=== PATIENT | female | born 1935 | race Caucasian/White ===

== ENCOUNTER 2020-11-08 17:24 | Inpatient (IN) ==
[2020-11-09 04:25] LABS: Basophils % 0.5 %; Eosinophils # 0.1 K/mcL (0.0-0.6); Eosinophils % 1.6 %; Hematocrit 32.6 % (35.3-44.9); Hemoglobin 9.9 g/dL (11.5-15.4); Immature Granulocytes % 0.2 % (0-4); Mean Corpuscular HGB Conc 30.4 g/dL (31.6-35.5); Mean Corpuscular Hemoglobin 31.2 pg (28.0-33.3); Mean Corpuscular Volume 102.8 fL (83.0-100.0); Mean Platelet Volume 10.7 fL (9.4-12.4); Monocytes # 0.7 K/mcL (0.0-1.3); Monocytes % 11.9 %; Neutrophils # 3.9 K/mcL (1.6-8.9); Platelet Count 154 K/mcL (140-400); Red Blood Count 3.17 M/mcL (3.82-4.97); Red Cell Distribution Width 15.5 % (11.5-14.5); Segmented Neutrophils % 68.8 %; White Blood Count 5.7 K/mcL (4.3-11.1)
[2020-11-09 05:19] LABS: Calcium 9.4 mg/dL (8.6-10.3); Potassium 3.7 mEq/L (3.5-5.1)
[2020-11-09] MEDS: Budesonide/Formoterol 160/4.5 1 PUFF INH IH SCH (10:26)
[2020-11-09] MEDS: Magnesium Oxide 400 MG TABLET PO SCH (10:30)
[2020-11-09] MEDS: Aspirin Enteric Coated 81 MG Tablet PO SCH (10:30)
[2020-11-09] MEDS: Nystatin POWDER 30 GM BOTTLE TP SCH ×3 (10:30→21:11)
[2020-11-09] MEDS: Metoprolol XL (24 HR) Succ 50 MG TAB.ER.24H PO SCH ×2 (10:30→21:10)
[2020-11-09] MEDS: FLUoxetine 20 MG CAPSULE PO SCH (10:32)
[2020-11-09] MEDS: Cefdinir 300 MG CAPSULE PO SCH ×2 (10:32→21:10)
[2020-11-09] MEDS: Furosemide 40 MG TABLET PO SCH (10:33)
[2020-11-09] MEDS: Isosorbide MONOnitrate (24 HR) 30 MG TAB.ER.24H PO SCH (10:33)
[2020-11-09] MEDS: POTASSIUM GLUCONATE 500 MG PO SCH (10:35)
[2020-11-09] MEDS: Multivit/Ca/Min/Fe/FA 1 TAB TABLET PO SCH (10:38)
[2020-11-09] MEDS: Loratadine 10 MG TABLET PO SCH (17:46)
[2020-11-10 04:07] LABS: Basophils % 0.6 %; Eosinophils # 0.1 K/mcL (0.0-0.6); Hematocrit 33.1 % (35.3-44.9); Hemoglobin 10.4 g/dL (11.5-15.4); Immature Granulocytes % 0.2 % (0-4); Lymphocytes # 1.1 K/mcL (0.6-4.6); Lymphocytes % 20.6 %; Mean Corpuscular HGB Conc 31.4 g/dL (31.6-35.5); Mean Corpuscular Hemoglobin 32.4 pg (28.0-33.3); Mean Corpuscular Volume 103.1 fL (83.0-100.0); Mean Platelet Volume 10.9 fL (9.4-12.4); Monocytes # 0.7 K/mcL (0.0-1.3); Monocytes % 12.1 %; Neutrophils # 3.5 K/mcL (1.6-8.9); Platelet Count 165 K/mcL (140-400); Red Blood Count 3.21 M/mcL (3.82-4.97); Red Cell Distribution Width 15.7 % (11.5-14.5); Segmented Neutrophils % 64.5 %; White Blood Count 5.4 K/mcL (4.3-11.1)
[2020-11-10 04:59] LABS: Calcium 9.4 mg/dL (8.6-10.3); Potassium 3.9 mEq/L (3.5-5.1)
[2020-11-10] MEDS: Budesonide/Formoterol 160/4.5 1 PUFF INH IH SCH (08:15)
[2020-11-10] MEDS: Furosemide 40 MG TABLET PO SCH (10:03)
[2020-11-10] MEDS: Metoprolol XL (24 HR) Succ 50 MG TAB.ER.24H PO SCH ×2 (10:03→21:53)
[2020-11-10] MEDS: Isosorbide MONOnitrate (24 HR) 30 MG TAB.ER.24H PO SCH (10:03)
[2020-11-10] MEDS: Magnesium Oxide 400 MG TABLET PO SCH (10:03)
[2020-11-10] MEDS: Nystatin POWDER 30 GM BOTTLE TP SCH ×3 (10:04→21:55)
[2020-11-10] MEDS: POTASSIUM GLUCONATE 500 MG PO SCH (10:04)
[2020-11-10] MEDS: Cefdinir 300 MG CAPSULE PO SCH ×2 (10:04→21:54)
[2020-11-10] MEDS: FLUoxetine 20 MG CAPSULE PO SCH (10:04)
[2020-11-10] MEDS: Aspirin Enteric Coated 81 MG Tablet PO SCH (10:04)
[2020-11-10] MEDS: Multivit/Ca/Min/Fe/FA 1 TAB TABLET PO SCH (10:04)
[2020-11-10] MEDS: Loratadine 10 MG TABLET PO SCH (19:18)
[2020-11-10] MEDS: Melatonin 3 MG TABLET PO PRN (21:54)
[2020-11-11] MEDS: FLUoxetine 20 MG CAPSULE PO SCH (09:04)
[2020-11-11] MEDS: Isosorbide MONOnitrate (24 HR) 30 MG TAB.ER.24H PO SCH (09:04)
[2020-11-11] MEDS: Magnesium Oxide 400 MG TABLET PO SCH (09:04)
[2020-11-11] MEDS: Cefdinir 300 MG CAPSULE PO SCH (09:04)
[2020-11-11] MEDS: Aspirin Enteric Coated 81 MG Tablet PO SCH (09:04)
[2020-11-11] MEDS: Metoprolol XL (24 HR) Succ 50 MG TAB.ER.24H PO SCH ×2 (09:04→20:12)
[2020-11-11] MEDS: Multivit/Ca/Min/Fe/FA 1 TAB TABLET PO SCH (09:04)
[2020-11-11] MEDS: Furosemide 40 MG TABLET PO SCH (09:05)
[2020-11-11] MEDS: POTASSIUM GLUCONATE 500 MG PO SCH (09:07)
[2020-11-11] MEDS: Nystatin POWDER 30 GM BOTTLE TP SCH ×3 (09:07→20:13)
[2020-11-11] MEDS: Budesonide/Formoterol 160/4.5 1 PUFF INH IH SCH (09:32)
[2020-11-11] MEDS: Loratadine 10 MG TABLET PO SCH (18:17)
[2020-11-12 08:01] LABS: Basophils % 0.8 %; Eosinophils # 0.1 K/mcL (0.0-0.6); Eosinophils % 2.1 %; Hematocrit 33.2 % (35.3-44.9); Hemoglobin 10.4 g/dL (11.5-15.4); Immature Granulocytes % 0.2 % (0-4); Lymphocytes % 18.8 %; Mean Corpuscular HGB Conc 31.3 g/dL (31.6-35.5); Mean Corpuscular Hemoglobin 32.3 pg (28.0-33.3); Mean Corpuscular Volume 103.1 fL (83.0-100.0); Mean Platelet Volume 10.9 fL (9.4-12.4); Monocytes # 0.6 K/mcL (0.0-1.3); Monocytes % 11.6 %; Neutrophils # 3.4 K/mcL (1.6-8.9); Platelet Count 166 K/mcL (140-400); Red Blood Count 3.22 M/mcL (3.82-4.97); Red Cell Distribution Width 15.6 % (11.5-14.5); Segmented Neutrophils % 66.5 %; White Blood Count 5.2 K/mcL (4.3-11.1)
[2020-11-12 08:05] LABS: Calcium 9.4 mg/dL (8.6-10.3)
[2020-11-12] MEDS: Budesonide/Formoterol 160/4.5 1 PUFF INH IH SCH (08:11)
[2020-11-12] MEDS: Magnesium Oxide 400 MG TABLET PO SCH (09:08)
[2020-11-12] MEDS: Metoprolol XL (24 HR) Succ 50 MG TAB.ER.24H PO SCH ×2 (09:08→20:35)
[2020-11-12] MEDS: Furosemide 40 MG TABLET PO SCH (09:09)
[2020-11-12] MEDS: FLUoxetine 20 MG CAPSULE PO SCH (09:09)
[2020-11-12] MEDS: Nystatin POWDER 30 GM BOTTLE TP SCH ×3 (09:09→20:35)
[2020-11-12] MEDS: Aspirin Enteric Coated 81 MG Tablet PO SCH (09:09)
[2020-11-12] MEDS: Multivit/Ca/Min/Fe/FA 1 TAB TABLET PO SCH (09:09)
[2020-11-12] MEDS: Isosorbide MONOnitrate (24 HR) 30 MG TAB.ER.24H PO SCH (09:09)
[2020-11-12] MEDS: POTASSIUM GLUCONATE 500 MG PO SCH (09:10)
[2020-11-12] MEDS: Sennosides/Docusate Sodium TABLET PO SCH ×2 (13:55→20:35)
[2020-11-12] MEDS: polyethylene glycoL 3350 17 GM POWD.PACK PO SCH (13:55)
[2020-11-12] MEDS: Loratadine 10 MG TABLET PO SCH (18:08)
[2020-11-12] MEDS: Melatonin 3 MG TABLET PO PRN (20:35)
[2020-11-13] MEDS: polyethylene glycoL 3350 17 GM POWD.PACK PO SCH (09:50)
[2020-11-13] MEDS: Isosorbide MONOnitrate (24 HR) 30 MG TAB.ER.24H PO SCH (09:51)
[2020-11-13] MEDS: Furosemide 40 MG TABLET PO SCH (09:51)
[2020-11-13] MEDS: Sennosides/Docusate Sodium TABLET PO SCH ×2 (09:51→20:35)
[2020-11-13] MEDS: Metoprolol XL (24 HR) Succ 50 MG TAB.ER.24H PO SCH ×2 (09:51→20:36)
[2020-11-13] MEDS: FLUoxetine 20 MG CAPSULE PO SCH (09:51)
[2020-11-13] MEDS: Magnesium Oxide 400 MG TABLET PO SCH (09:51)
[2020-11-13] MEDS: Multivit/Ca/Min/Fe/FA 1 TAB TABLET PO SCH (09:51)
[2020-11-13] MEDS: Aspirin Enteric Coated 81 MG Tablet PO SCH (09:51)
[2020-11-13] MEDS: POTASSIUM GLUCONATE 500 MG PO SCH (09:52)
[2020-11-13] MEDS: Nystatin POWDER 30 GM BOTTLE TP SCH ×3 (09:52→20:37)
[2020-11-13] MEDS: Budesonide/Formoterol 160/4.5 1 PUFF INH IH SCH (10:22)
[2020-11-13] MEDS: Loratadine 10 MG TABLET PO SCH (17:25)
[2020-11-14] MEDS: Budesonide/Formoterol 160/4.5 1 PUFF INH IH SCH (09:35)
[2020-11-14] MEDS: Isosorbide MONOnitrate (24 HR) 30 MG TAB.ER.24H PO SCH (09:46)
[2020-11-14] MEDS: Metoprolol XL (24 HR) Succ 50 MG TAB.ER.24H PO SCH ×2 (09:46→20:05)
[2020-11-14] MEDS: FLUoxetine 20 MG CAPSULE PO SCH (09:46)
[2020-11-14] MEDS: Nystatin POWDER 30 GM BOTTLE TP SCH ×3 (09:46→20:05)
[2020-11-14] MEDS: Furosemide 40 MG TABLET PO SCH (09:46)
[2020-11-14] MEDS: Sennosides/Docusate Sodium TABLET PO SCH ×2 (09:46→20:03)
[2020-11-14] MEDS: polyethylene glycoL 3350 17 GM POWD.PACK PO SCH (09:46)
[2020-11-14] MEDS: Aspirin Enteric Coated 81 MG Tablet PO SCH (09:47)
[2020-11-14] MEDS: POTASSIUM GLUCONATE 500 MG PO SCH (09:47)
[2020-11-14] MEDS: Multivit/Ca/Min/Fe/FA 1 TAB TABLET PO SCH (09:47)
[2020-11-14] MEDS: Magnesium Oxide 400 MG TABLET PO SCH (09:47)
[2020-11-14] MEDS: Loratadine 10 MG TABLET PO SCH (17:10)
[2020-11-14] MEDS: Melatonin 3 MG TABLET PO PRN (22:09)
[2020-11-15] MEDS: Budesonide/Formoterol 160/4.5 1 PUFF INH IH SCH (07:54)
[2020-11-15] MEDS: Sennosides/Docusate Sodium TABLET PO SCH ×2 (08:49→20:59)
[2020-11-15] MEDS: Metoprolol XL (24 HR) Succ 50 MG TAB.ER.24H PO SCH ×2 (08:49→21:11)
[2020-11-15] MEDS: Aspirin Enteric Coated 81 MG Tablet PO SCH (08:49)
[2020-11-15] MEDS: Isosorbide MONOnitrate (24 HR) 30 MG TAB.ER.24H PO SCH (08:49)
[2020-11-15] MEDS: FLUoxetine 20 MG CAPSULE PO SCH (08:50)
[2020-11-15] MEDS: Multivit/Ca/Min/Fe/FA 1 TAB TABLET PO SCH (08:50)
[2020-11-15] MEDS: polyethylene glycoL 3350 17 GM POWD.PACK PO SCH (08:50)
[2020-11-15] MEDS: Nystatin POWDER 30 GM BOTTLE TP SCH ×3 (08:50→21:11)
[2020-11-15] MEDS: Magnesium Oxide 400 MG TABLET PO SCH (08:50)
[2020-11-15] MEDS: Furosemide 40 MG TABLET PO SCH (08:50)
[2020-11-15] MEDS: POTASSIUM GLUCONATE 500 MG PO SCH (08:51)
[2020-11-15] MEDS: Loratadine 10 MG TABLET PO SCH (17:25)
[2020-11-16] MEDS: Budesonide/Formoterol 160/4.5 1 PUFF INH IH SCH (08:26)
[2020-11-16] MEDS: POTASSIUM GLUCONATE 500 MG PO SCH (08:59)
[2020-11-16] MEDS: Magnesium Oxide 400 MG TABLET PO SCH (09:15)
[2020-11-16] MEDS: Furosemide 40 MG TABLET PO SCH (09:15)
[2020-11-16] MEDS: Isosorbide MONOnitrate (24 HR) 30 MG TAB.ER.24H PO SCH (09:15)
[2020-11-16] MEDS: Aspirin Enteric Coated 81 MG Tablet PO SCH (09:15)
[2020-11-16] MEDS: Sennosides/Docusate Sodium TABLET PO SCH ×2 (09:15→21:13)
[2020-11-16] MEDS: Metoprolol XL (24 HR) Succ 50 MG TAB.ER.24H PO SCH ×2 (09:15→21:13)
[2020-11-16] MEDS: Multivit/Ca/Min/Fe/FA 1 TAB TABLET PO SCH (09:15)
[2020-11-16] MEDS: FLUoxetine 20 MG CAPSULE PO SCH (09:15)
[2020-11-16] MEDS: polyethylene glycoL 3350 17 GM POWD.PACK PO SCH (09:15)
[2020-11-16] MEDS: Nystatin POWDER 30 GM BOTTLE TP SCH ×3 (09:17→21:14)
[2020-11-16] MEDS: Loratadine 10 MG TABLET PO SCH (17:32)
[2020-11-17] MEDS: Isosorbide MONOnitrate (24 HR) 30 MG TAB.ER.24H PO SCH (07:53)
[2020-11-17] MEDS: Furosemide 40 MG TABLET PO SCH (07:54)
[2020-11-17] MEDS: Magnesium Oxide 400 MG TABLET PO SCH (07:54)
[2020-11-17] MEDS: Multivit/Ca/Min/Fe/FA 1 TAB TABLET PO SCH (07:54)
[2020-11-17] MEDS: Metoprolol XL (24 HR) Succ 50 MG TAB.ER.24H PO SCH ×2 (07:54→20:15)
[2020-11-17] MEDS: FLUoxetine 20 MG CAPSULE PO SCH (07:54)
[2020-11-17] MEDS: Sennosides/Docusate Sodium TABLET PO SCH ×2 (07:54→20:14)
[2020-11-17] MEDS: Aspirin Enteric Coated 81 MG Tablet PO SCH (07:54)
[2020-11-17] MEDS: Nystatin POWDER 30 GM BOTTLE TP SCH ×3 (07:55→20:15)
[2020-11-17] MEDS: polyethylene glycoL 3350 17 GM POWD.PACK PO SCH (07:55)
[2020-11-17] MEDS: POTASSIUM GLUCONATE 500 MG PO SCH (07:56)
[2020-11-17] MEDS: Budesonide/Formoterol 160/4.5 1 PUFF INH IH SCH (09:55)
[2020-11-17] MEDS: Loratadine 10 MG TABLET PO SCH (17:22)
[2020-11-17] MEDS: Acetaminophen 325 MG TABLET PO PRN (20:29)
[2020-11-18] MEDS: Metoprolol XL (24 HR) Succ 50 MG TAB.ER.24H PO SCH ×2 (10:16→20:39)
[2020-11-18] MEDS: Isosorbide MONOnitrate (24 HR) 30 MG TAB.ER.24H PO SCH (10:17)
[2020-11-18] MEDS: Aspirin Enteric Coated 81 MG Tablet PO SCH (10:17)
[2020-11-18] MEDS: Magnesium Oxide 400 MG TABLET PO SCH (10:17)
[2020-11-18] MEDS: Multivit/Ca/Min/Fe/FA 1 TAB TABLET PO SCH (10:17)
[2020-11-18] MEDS: Nystatin POWDER 30 GM BOTTLE TP SCH ×3 (10:17→20:39)
[2020-11-18] MEDS: Furosemide 40 MG TABLET PO SCH (10:17)
[2020-11-18] MEDS: FLUoxetine 20 MG CAPSULE PO SCH (10:17)
[2020-11-18] MEDS: polyethylene glycoL 3350 17 GM POWD.PACK PO SCH (10:17)
[2020-11-18] MEDS: Sennosides/Docusate Sodium TABLET PO SCH ×2 (10:17→20:39)
[2020-11-18] MEDS: POTASSIUM GLUCONATE 500 MG PO SCH (10:18)
[2020-11-18] MEDS: Budesonide/Formoterol 160/4.5 1 PUFF INH IH SCH (10:30)
[2020-11-18] MEDS: Loratadine 10 MG TABLET PO SCH (17:14)
[2020-11-19] MEDS: Multivit/Ca/Min/Fe/FA 1 TAB TABLET PO SCH (07:41)
[2020-11-19] MEDS: FLUoxetine 20 MG CAPSULE PO SCH (07:41)
[2020-11-19] MEDS: Magnesium Oxide 400 MG TABLET PO SCH (07:41)
[2020-11-19] MEDS: Aspirin Enteric Coated 81 MG Tablet PO SCH (07:41)
[2020-11-19] MEDS: Furosemide 40 MG TABLET PO SCH (07:41)
[2020-11-19] MEDS: polyethylene glycoL 3350 17 GM POWD.PACK PO SCH (07:42)
[2020-11-19] MEDS: POTASSIUM GLUCONATE 500 MG PO SCH (07:42)
[2020-11-19] MEDS: Nystatin POWDER 30 GM BOTTLE TP SCH ×3 (07:42→20:04)
[2020-11-19] MEDS: Sennosides/Docusate Sodium TABLET PO SCH ×2 (07:42→20:03)
[2020-11-19] MEDS: Isosorbide MONOnitrate (24 HR) 30 MG TAB.ER.24H PO SCH (07:42)
[2020-11-19] MEDS: Budesonide/Formoterol 160/4.5 1 PUFF INH IH SCH (10:14)
[2020-11-19] MEDS: Metoprolol XL (24 HR) Succ 50 MG TAB.ER.24H PO SCH ×2 (12:28→20:03)
[2020-11-19] MEDS: Loratadine 10 MG TABLET PO SCH (20:04)
[2020-11-20] MEDS ORDERED: Ondansetron 4 MG/2 ML VIAL IVP PRN (05:41)
[2020-11-20] MEDS: Ondansetron ODT 4 MG TAB.RAPDIS SL PRN (06:00)
[2020-11-20] MEDS: FLUoxetine 20 MG CAPSULE PO SCH (08:04)
[2020-11-20] MEDS: Sennosides/Docusate Sodium TABLET PO SCH ×2 (08:04→20:38)
[2020-11-20] MEDS: Multivit/Ca/Min/Fe/FA 1 TAB TABLET PO SCH (08:04)
[2020-11-20] MEDS: Magnesium Oxide 400 MG TABLET PO SCH (08:04)
[2020-11-20] MEDS: Isosorbide MONOnitrate (24 HR) 30 MG TAB.ER.24H PO SCH (08:04)
[2020-11-20] MEDS: Furosemide 40 MG TABLET PO SCH (08:04)
[2020-11-20] MEDS: POTASSIUM GLUCONATE 500 MG PO SCH (08:05)
[2020-11-20] MEDS: Aspirin Enteric Coated 81 MG Tablet PO SCH (08:05)
[2020-11-20] MEDS: polyethylene glycoL 3350 17 GM POWD.PACK PO SCH (08:05)
[2020-11-20] MEDS: Budesonide/Formoterol 160/4.5 1 PUFF INH IH SCH (09:56)
[2020-11-20] MEDS: Metoprolol XL (24 HR) Succ 50 MG TAB.ER.24H PO SCH ×2 (10:06→20:39)
[2020-11-20] MEDS: Nystatin POWDER 30 GM BOTTLE TP SCH ×3 (10:21→20:40)
[2020-11-20] MEDS ORDERED: Furosemide 20 MG TABLET PO ONE (15:00)
[2020-11-20] MEDS: Loratadine 10 MG TABLET PO SCH (20:38)
[2020-11-21] MEDS: Budesonide/Formoterol 160/4.5 1 PUFF INH IH SCH (07:53)
[2020-11-21] MEDS: FLUoxetine 20 MG CAPSULE PO SCH (08:33)
[2020-11-21] MEDS: Nystatin POWDER 30 GM BOTTLE TP SCH ×3 (08:33→20:02)
[2020-11-21] MEDS: Aspirin Enteric Coated 81 MG Tablet PO SCH (08:34)
[2020-11-21] MEDS: Furosemide 40 MG TABLET PO SCH (08:34)
[2020-11-21] MEDS: Sennosides/Docusate Sodium TABLET PO SCH ×2 (08:34→19:52)
[2020-11-21] MEDS: Multivit/Ca/Min/Fe/FA 1 TAB TABLET PO SCH (08:34)
[2020-11-21] MEDS: Magnesium Oxide 400 MG TABLET PO SCH (08:34)
[2020-11-21] MEDS: Isosorbide MONOnitrate (24 HR) 30 MG TAB.ER.24H PO SCH (08:35)
[2020-11-21] MEDS: Metoprolol XL (24 HR) Succ 50 MG TAB.ER.24H PO SCH ×2 (08:35→19:53)
[2020-11-21] MEDS: POTASSIUM GLUCONATE 500 MG PO SCH (08:35)
[2020-11-21] MEDS: polyethylene glycoL 3350 17 GM POWD.PACK PO SCH (08:35)
[2020-11-21 08:56] LABS: Calcium 9.7 mg/dL (8.6-10.3); Potassium 3.8 mEq/L (3.5-5.1)
[2020-11-21] MEDS: Loratadine 10 MG TABLET PO SCH (19:52)
[2020-11-22] MEDS: Sennosides/Docusate Sodium TABLET PO SCH ×2 (09:21→20:47)
[2020-11-22] MEDS: Multivit/Ca/Min/Fe/FA 1 TAB TABLET PO SCH (09:21)
[2020-11-22] MEDS: FLUoxetine 20 MG CAPSULE PO SCH (09:21)
[2020-11-22] MEDS: polyethylene glycoL 3350 17 GM POWD.PACK PO SCH (09:21)
[2020-11-22] MEDS: Furosemide 40 MG TABLET PO SCH (09:22)
[2020-11-22] MEDS: Aspirin Enteric Coated 81 MG Tablet PO SCH (09:22)
[2020-11-22] MEDS: Metoprolol XL (24 HR) Succ 50 MG TAB.ER.24H PO SCH ×2 (09:22→20:48)
[2020-11-22] MEDS: Magnesium Oxide 400 MG TABLET PO SCH (09:22)
[2020-11-22] MEDS: Isosorbide MONOnitrate (24 HR) 30 MG TAB.ER.24H PO SCH (09:23)
[2020-11-22] MEDS: Nystatin POWDER 30 GM BOTTLE TP SCH ×3 (09:23→20:49)
[2020-11-22] MEDS: POTASSIUM GLUCONATE 500 MG PO SCH (09:23)
[2020-11-22] MEDS: Budesonide/Formoterol 160/4.5 1 PUFF INH IH SCH (10:26)
[2020-11-22] MEDS: Loratadine 10 MG TABLET PO SCH (20:47)
[2020-11-23] MEDS: Magnesium Oxide 400 MG TABLET PO SCH (08:27)
[2020-11-23] MEDS: Multivit/Ca/Min/Fe/FA 1 TAB TABLET PO SCH (08:27)
[2020-11-23] MEDS: Metoprolol XL (24 HR) Succ 50 MG TAB.ER.24H PO SCH ×2 (08:27→19:35)
[2020-11-23] MEDS: polyethylene glycoL 3350 17 GM POWD.PACK PO SCH (08:27)
[2020-11-23] MEDS: Aspirin Enteric Coated 81 MG Tablet PO SCH (08:28)
[2020-11-23] MEDS: Acetaminophen 325 MG TABLET PO PRN (08:28)
[2020-11-23] MEDS: FLUoxetine 20 MG CAPSULE PO SCH (08:28)
[2020-11-23] MEDS: Sennosides/Docusate Sodium TABLET PO SCH ×2 (08:28→19:35)
[2020-11-23] MEDS: Furosemide 40 MG TABLET PO SCH (08:28)
[2020-11-23] MEDS: Isosorbide MONOnitrate (24 HR) 30 MG TAB.ER.24H PO SCH (08:28)
[2020-11-23] MEDS: POTASSIUM GLUCONATE 500 MG PO SCH (08:29)
[2020-11-23] MEDS: Nystatin POWDER 30 GM BOTTLE TP SCH ×3 (08:29→19:36)
[2020-11-23] MEDS: Budesonide/Formoterol 160/4.5 1 PUFF INH IH SCH (10:05)
[2020-11-23] MEDS: Loratadine 10 MG TABLET PO SCH (19:35)
[2020-11-24] MEDS: Ondansetron ODT 4 MG TAB.RAPDIS SL PRN (05:50)
[2020-11-24 07:55] LABS: Basophils % 0.6 %; Eosinophils # 0.1 K/mcL (0.0-0.6); Eosinophils % 2.9 %; Immature Granulocytes % 0.4 % (0-4); Lymphocytes # 0.8 K/mcL (0.6-4.6); Lymphocytes % 15.7 %; Mean Corpuscular HGB Conc 30.6 g/dL (31.6-35.5); Mean Corpuscular Hemoglobin 31.5 pg (28.0-33.3); Mean Corpuscular Volume 103.2 fL (83.0-100.0); Mean Platelet Volume 10.8 fL (9.4-12.4); Monocytes # 0.6 K/mcL (0.0-1.3); Monocytes % 12.3 %; Neutrophils # 3.3 K/mcL (1.6-8.9); Platelet Count 139 K/mcL (140-400); Red Blood Count 3.49 M/mcL (3.82-4.97); Red Cell Distribution Width 15.9 % (11.5-14.5); Segmented Neutrophils % 68.1 %; White Blood Count 4.9 K/mcL (4.3-11.1)
[2020-11-24 08:14] LABS: Calcium 9.8 mg/dL (8.6-10.3); Potassium 3.7 mEq/L (3.5-5.1)
[2020-11-24] MEDS: Metoprolol XL (24 HR) Succ 50 MG TAB.ER.24H PO SCH ×2 (09:38→20:04)
[2020-11-24] MEDS: Multivit/Ca/Min/Fe/FA 1 TAB TABLET PO SCH (09:39)
[2020-11-24] MEDS: Sennosides/Docusate Sodium TABLET PO SCH ×2 (09:39→20:04)
[2020-11-24] MEDS: polyethylene glycoL 3350 17 GM POWD.PACK PO SCH (09:39)
[2020-11-24] MEDS: Magnesium Oxide 400 MG TABLET PO SCH (09:39)
[2020-11-24] MEDS: FLUoxetine 20 MG CAPSULE PO SCH (09:39)
[2020-11-24] MEDS: Isosorbide MONOnitrate (24 HR) 30 MG TAB.ER.24H PO SCH (09:39)
[2020-11-24] MEDS: Aspirin Enteric Coated 81 MG Tablet PO SCH (09:39)
[2020-11-24] MEDS: Furosemide 40 MG TABLET PO SCH (09:39)
[2020-11-24] MEDS: POTASSIUM GLUCONATE 500 MG PO SCH (09:40)
[2020-11-24] MEDS: Budesonide/Formoterol 160/4.5 1 PUFF INH IH SCH (09:55)
[2020-11-24] MEDS: Nystatin POWDER 30 GM BOTTLE TP SCH ×3 (10:17→20:06)
[2020-11-24] MEDS ORDERED: polyethylene glycoL 3350 17 GM POWD.PACK PO PRN (10:17)
[2020-11-24] MEDS ORDERED: Furosemide 20 MG TABLET PO ONE (15:00)
[2020-11-24] MEDS: Loratadine 10 MG TABLET PO SCH (20:04)
[2020-11-24] MEDS: Acetaminophen 325 MG TABLET PO PRN (20:41)
[2020-11-24] MEDS: Melatonin 3 MG TABLET PO PRN (20:42)
[2020-11-25] MEDS: Aspirin Enteric Coated 81 MG Tablet PO SCH (09:13)
[2020-11-25] MEDS: Sennosides/Docusate Sodium TABLET PO SCH ×2 (09:14→19:54)
[2020-11-25] MEDS: Multivit/Ca/Min/Fe/FA 1 TAB TABLET PO SCH (09:14)
[2020-11-25] MEDS: Metoprolol XL (24 HR) Succ 50 MG TAB.ER.24H PO SCH ×2 (09:14→19:54)
[2020-11-25] MEDS: Isosorbide MONOnitrate (24 HR) 30 MG TAB.ER.24H PO SCH (09:14)
[2020-11-25] MEDS: Magnesium Oxide 400 MG TABLET PO SCH (09:14)
[2020-11-25] MEDS: FLUoxetine 20 MG CAPSULE PO SCH (09:14)
[2020-11-25] MEDS: POTASSIUM GLUCONATE 500 MG PO SCH (09:15)
[2020-11-25] MEDS: Furosemide 40 MG TABLET PO SCH (09:15)
[2020-11-25] MEDS: Nystatin POWDER 30 GM BOTTLE TP SCH ×3 (09:18→19:54)
[2020-11-25] MEDS: Budesonide/Formoterol 160/4.5 1 PUFF INH IH SCH (09:39)
[2020-11-25] MEDS ORDERED: Furosemide 20 MG TABLET PO ONE (13:27)
[2020-11-25] MEDS: Loratadine 10 MG TABLET PO SCH (19:54)
[2020-11-25] MEDS: Acetaminophen 325 MG TABLET PO PRN (21:41)
[2020-11-25] MEDS: Melatonin 3 MG TABLET PO PRN (21:41)
[2020-11-26 06:52] VITALS: BP 102/62
[2020-11-26] MEDS: Metoprolol XL (24 HR) Succ 50 MG TAB.ER.24H PO SCH (08:51)
[2020-11-26] MEDS: FLUoxetine 20 MG CAPSULE PO SCH (08:51)
[2020-11-26] MEDS: Multivit/Ca/Min/Fe/FA 1 TAB TABLET PO SCH (08:51)
[2020-11-26] MEDS: Isosorbide MONOnitrate (24 HR) 30 MG TAB.ER.24H PO SCH (08:51)
[2020-11-26] MEDS: Magnesium Oxide 400 MG TABLET PO SCH (08:51)
[2020-11-26] MEDS: Aspirin Enteric Coated 81 MG Tablet PO SCH (08:51)
[2020-11-26] MEDS: Sennosides/Docusate Sodium TABLET PO SCH (08:52)
[2020-11-26] MEDS: POTASSIUM GLUCONATE 500 MG PO SCH (08:52)
[2020-11-26] MEDS: Budesonide/Formoterol 160/4.5 1 PUFF INH IH SCH (10:31)
== END 2020-11-26 15:47 | disposition home health service (06) | DRG 945 ==
LOC: INPPIK 22:05
PROVIDERS: ADMIT Family Medicine; ATTEND Family Medicine